=== PATIENT | male | born 1940 | race Caucasian/White ===

== ENCOUNTER 2019-02-24 13:51 | Emergency (ER) | payer OTHER ==
[~2019-02-24] VITALS: Ht 180.3 cm; Wt 74.8 kg
[~2019-02-24 13:51] MED LIST: ASPIRIN325 PO; FLOMAX PO; FOLIC ACID1 MG PO; HYDROCODON-ACE1 EACH PO; IBUPROFEN 400400 M1 PO; LEVAQUIN 500 M500 M2 PO; NORCO 5-325 TA1 EACH PO; PERCOCET 5-3251 EACH PO; TUMS PO
[2019-02-24] MEDS ORDERED: LISINOPRIL10 MG PO (14:24)
[2019-02-24] MEDS ORDERED: MOBIC15 MG PO (15:39)
[2019-02-24 15:52] VITALS: BP 137/58
== END 2019-02-24 15:53 | disposition home or self-care (01) ==
LOC: ER 13:51
DX: M76.62 Achilles tendinitis, left leg (principal); I10 Essential (primary) hypertension; Z87.442 Personal history of urinary calculi; Z85.828 Personal history of other malignant neoplasm of skin